=== PATIENT | female | born 2000 | race Caucasian/White ===

== ENCOUNTER → 2019-12-25 | Outpatient (CLI) | payer BC ==
--- NOTE | 2019-12-29 19:48 | HM ---
HOLTER MONITOR REPORT This patient was monitored for 24 hours. Baseline rhythm is sinus mechanism with normal conduction, the average rate 97 beats per minute, minimum 56, maximum 163 beats per minute. Ventricular ectopic activity was present in the form of rare single PVCs. Supraventricular ectopic activity was present in the form of rare single PACs. Symptoms of shortness of breath did not correlate with any dysrhythmia. CONCLUSION: 1. Sinus mechanism is baseline rhythm. 2. Rare ventricular ectopic activity. 3. Rare supraventricular ectopic activity. 4. Symptoms did not correlate with any dysrhythmia. MMODL / IJN: [id number] /
== END | disposition home or self-care (01) ==
LOC: RADECHMAIN 12:16
PROVIDERS: ATTEND Internal Medicine
DX: R00.2 Palpitations (principal)
CPT/HCPCS: 93225; 93226